=== PATIENT | female | born 1960 | race Caucasian/White ===

== ENCOUNTER 2017-07-26 05:35 | Outpatient (CLI) | payer BC ==
[~2017-07-26] VITALS: Ht 152.4 cm; Wt 78.0 kg
[2017-07-26] MEDS ORDERED: EZET10TA27 PO (15:52)
[2017-07-26] MEDS ORDERED: OLME20TA24 PO (15:52)
== END 2017-07-26 16:01 ==
LOC: PREOP 05:35
PROVIDERS: ATTEND Otolaryngology Otolaryngology/Facial Plastic Surgery
DX: Z01.818 Encounter for other preprocedural examination (principal); J32.9 Chronic sinusitis, unspecified; R22.0 Localized swelling, mass and lump, head

== ENCOUNTER 2017-07-30 09:31 | Day surgery (SDC) | payer BC ==
[~2017-07-30] VITALS: Ht 152.4 cm; Wt 78.0 kg
[~2017-07-30 09:31] MED LIST: EZET10TA27 PO; OLME20TA24 PO
[2017-07-30] MEDS ORDERED: CATHETER FLUSH 10 ML SYR IV PRN (10:00)
[2017-07-30] MEDS ORDERED: AMPICILLIN/SULBACTAM 1.5 GM/NS 100 ML IVPB IV ONE ×2 (10:00)
[2017-07-30] MEDS ORDERED: HYDROCORTISONE 100 MG/2 ML (Solu-CORTEF) VIAL IV ONE ×2 (10:00→10:30)
[2017-07-30] MEDS ORDERED: LACTATED RINGERS 1,000 ML IV PRN (10:23)
[2017-07-30 10:29] VITALS: BP 146/79
[2017-07-30] MEDS ORDERED: FAMOTIDINE 20MG/2ML IV (PEPCID) IV ONE ×2 (10:30→10:45)
[2017-07-30] MEDS ORDERED: AMPICILLIN/SULBACTAM INJECTION 1.5 GM in NS (IVPB) 100 ML IV ONE (10:30)
[2017-07-30] MEDS ORDERED: FAMOTIDINE 20MG/2ML IV (PEPCID) ONE (10:32)
[2017-07-30] MEDS ORDERED: MIDAZOLAM 2 MG/2 ML (VERSED) VIAL ONE (13:28)
[2017-07-30] MEDS ORDERED: fentaNYL INJECTION 100 MCG/2 ML AMP ONE (13:28)
[2017-07-30] MEDS ORDERED: PHENYLEPHRINE 0.5% NASAL SPR (NEO-SYNEPHRINE) REG ONE (13:33)
[2017-07-30] MEDS ORDERED: COCAINE HCL 4% 2 ML SYR ONE (13:33)
[2017-07-30] MEDS ORDERED: LIDOCAINE/EPI 1%-1:200,000 (XYLOCAINE) 10 ML VIAL ONE (13:33)
--- NOTE | 2017-07-30 13:34 | Progress Note-Pre Operative ---
Pre-Operative Progress Note H&P Reviewed The H&P was reviewed, patient examined and no changes noted. Date Seen by Provider: Jul 30, 2017 Time Seen by Provider: 13:00 Date H&P Reviewed: Jul 30, 2017 Time H&P Reviewed: 13:00 Pre-Operative Diagnosis: Chrnic Left Sinusitis KARAN CROUCH MD Jul 30, 2017 1:34 pm
[2017-07-30] MEDS ORDERED: LIDOCAINE PF 2% 5 ML (XYLOCAINE) VIAL ONE (14:00)
[2017-07-30] MEDS ORDERED: DEXAMETHASONE 10 MG/ML (DECADRON) 1 ML VIAL ONE (14:00)
[2017-07-30] MEDS ORDERED: ROCURONIUM 10 MG/ML 5 ML SYRINGE IV ONE (14:00)
[2017-07-30] MEDS ORDERED: ONDANSETRON 4 MG/2 ML (SDV) Z0FRAN ONE (14:00)
[2017-07-30] MEDS ORDERED: SEVOFLURANE (ULTANE) 15 ML INHAL SOLN ONE ×4 (14:00→14:46)
[2017-07-30] MEDS ORDERED: proPOfol 200 MG/20 ML (DIPRIVAN) VIAL IV ONE (14:00)
[2017-07-30] MEDS ORDERED: BSS 15 ML ONE (14:47)
[2017-07-30] MEDS ORDERED: MUPIROCIN 2% OINT 22 GM (BACTROBAN) TUBE ONE (14:47)
[2017-07-30] MEDS ORDERED: GLYCOPYRROLATE 0.2 MG/ML (ROBINUL) 2 ML VIAL ONE (14:54)
[2017-07-30] MEDS ORDERED: NEOSTIGMINE 1 MG/ML 5 ML SYRINGE ONE (14:54)
[2017-07-30] MEDS ORDERED: D5 1/2 NS W/KCL 20 MEQ/L 1,000 ML IV SCH (14:56)
--- NOTE | 2017-07-30 14:56 | Progress Note-Post Operative ---
Post-Operative Progess Note Surgeon (s)/Range Management Specialist (s) Surgeon KARAN CROUCH MD Range Management Specialist n/a Pre-Operative Diagnosis Chrnic Left Sinusitis Post-Operative Diagnosis same Post-Op Procedure Note Date of Procedure: Jul 30, 2017 Name of Procedure Performed: Left Endoscopic Sinus Surgery, Excision of Left OFrehead mass with INtermediate repair Description & Findings Description and Findings: n/a Anesthesia Type get Estimated Blood Loss minimal Packing none. Specimen(s) collected/removed left sinus disease cultures-left maxilary sinus-aerobic, anaerobic and fungal KARAN CROUCH MD Jul 30, 2017 2:56 pm
[2017-07-30] MEDS ORDERED: PROMETHAZINE INJ 25 MG/ML (PHENERGAN) AMP IVP PRN (15:00)
[2017-07-30] MEDS ORDERED: ACETAMINOPHEN 325 MG TABLET/CAPLET (TYLENOL) PO PRN (15:00)
[2017-07-30] MEDS ORDERED: HYDROcodone/APAP 5 MG/325 MG (LORTAB) TAB PO PRN (15:00)
[2017-07-30] MEDS ORDERED: predniSONE 20 MG TAB PO ONE (15:00)
[2017-07-30] MEDS ORDERED: ONDANSETRON 4 MG/2 ML (SDV) Z0FRAN IVP PRN (15:15)
[2017-07-30] MEDS ORDERED: MEPERIDINE (DEMEROL) INJ 50 MG/ML IVP PRN (15:15)
[2017-07-30] MEDS ORDERED: morphine INJ 10 MG/ML 1ML (SYR OR VIAL) IVP PRN (15:15)
[2017-07-30 16:15] VITALS: BP 172/90
--- NOTE | 2017-07-30 16:17 | Anesthesia-General Post-Op ---
General Patient Condition Mental Status/LOC: Same as Preop Cardiovascular: Satisfactory Nausea/Vomiting: Absent Respiratory: Satisfactory Pain: Controlled Complications: Absent Post Op Complications Complications None Follow Up Care/Instructions Patient Instructions None needed. Anesthesia/Patient Condition Patient Condition Patient is doing well, no complaints, stable vital signs, no apparent adverse anesthesia problems. No complications reported per nursing. D/C home per [facility] [place] Criteria: No ZOE HUANG CRNA Jul 30, 2017 16:17
[2017-07-30 16:45] VITALS: BP 154/93
[2017-07-30] MEDS ORDERED: HYDROcodone/APAP 5 MG/325 MG (LORTAB) TAB PO ONE (16:45)
[2017-07-30] MEDS ORDERED: PRD20T PO (16:47)
[2017-07-30] MEDS ORDERED: AMOX-355 PO (16:47)
[2017-07-30] MEDS ORDERED: ACHD5005 PO (16:47)
[2017-07-30] MEDS ORDERED: HYDROcodone/APAP 5 MG/325 MG (LORTAB) TAB ONE (16:48)
[2017-07-30 17:15] VITALS: BP 139/81
[2017-07-30 17:40] VITALS: BP 139/81
== END 2017-07-30 17:40 | disposition home or self-care (01) ==
LOC: SDC 09:31
PROVIDERS: ATTEND Otolaryngology Otolaryngology/Facial Plastic Surgery
DX: J32.2 Chronic ethmoidal sinusitis (principal); J32.0 Chronic maxillary sinusitis; D17.0 Benign lipomatous neoplasm of skin and subcutaneous tissue of head, face and neck; I10 Essential (primary) hypertension; E78.00 Pure hypercholesterolemia, unspecified; F32.9 Major depressive disorder, single episode, unspecified; E66.9 Obesity, unspecified; Z68.33 Body mass index [BMI] 33.0-33.9, adult; Z87.891 Personal history of nicotine dependence; Z79.899 Other long term (current) drug therapy
CPT/HCPCS: 87081